=== PATIENT | male | born 1965 | race Caucasian/White ===

== ENCOUNTER 2016-04-13 10:32 | Emergency (ER) | payer MEDICAID, OTHER ==
[~2016-04-13] VITALS: Ht 188 cm; Wt 138.8 kg
[~2016-04-13 10:32] MED LIST: ALPR1TAB7 PO; ASPI-231 PO; ATOR40TA52 PO; CITA-73 PO; DIAZ-104 PO; DOCU-94 PO; FENO5TAB PO; FLUT50SP13; GABA300C PO; INSUPOW SC; MECL25CH20 PO; MECL25TA94 PO; METH-562 PO; METH500T6 PO; NITR0.4S31 SL; NOVOLOG SC; OMEP20TA44 PO; PHENERGAN PO; PROMETHAZINE PO; RANI150C11 PO; [UNRECOGNIZED DRUG - CODE]; regular insulin
[2016-04-13 11:00] VITALS: BP 165/84
== END 2016-04-13 11:17 | disposition home or self-care (01) ==
LOC: ER 10:44
DX: S16.1XXA Strain of muscle, fascia and tendon at neck level, initial encounter (principal); E11.22 Type 2 diabetes mellitus with diabetic chronic kidney disease; I12.9 Hypertensive chronic kidney disease with stage 1 through stage 4 chronic kidney disease, or unspecified chronic kidney disease; N18.9 Chronic kidney disease, unspecified; J44.9 Chronic obstructive pulmonary disease, unspecified; E78.5 Hyperlipidemia, unspecified; I25.2 Old myocardial infarction; Z79.82 Long term (current) use of aspirin; Z79.4 Long term (current) use of insulin; Z79.899 Other long term (current) drug therapy; V49.9XXA Car occupant (driver) (passenger) injured in unspecified traffic accident, initial encounter; Y93.89 Activity, other specified; Y99.8 Other external cause status; Y92.89 Other specified places as the place of occurrence of the external cause

== ENCOUNTER 2016-11-18 14:51 | Emergency (ER) | payer OTHER, MEDICAID ==
[~2016-11-18] VITALS: Ht 188 cm; Wt 128.4 kg
[2016-11-18 15:42] VITALS: BP 143/93
== END 2016-11-18 16:52 | disposition home or self-care (01) ==
LOC: ER 14:51
DX: S63.602A Unspecified sprain of left thumb, initial encounter (principal); E78.5 Hyperlipidemia, unspecified; W18.39XA Other fall on same level, initial encounter; I12.9 Hypertensive chronic kidney disease with stage 1 through stage 4 chronic kidney disease, or unspecified chronic kidney disease; I25.2 Old myocardial infarction; F17.210 Nicotine dependence, cigarettes, uncomplicated; N18.9 Chronic kidney disease, unspecified; E11.22 Type 2 diabetes mellitus with diabetic chronic kidney disease; J44.9 Chronic obstructive pulmonary disease, unspecified; Z88.1 Allergy status to other antibiotic agents; Z88.8 Allergy status to other drugs, medicaments and biological substances; Z79.899 Other long term (current) drug therapy; Z90.49 Acquired absence of other specified parts of digestive tract; H81.09 Meniere's disease, unspecified ear; Y93.89 Activity, other specified; Y92.89 Other specified places as the place of occurrence of the external cause; Y99.8 Other external cause status
CPT/HCPCS: 73130

== ENCOUNTER 2017-01-08 09:59 | Inpatient (IN) | payer OTHER, MEDICAID ==
[~2017-01-08] VITALS: Ht 188 cm; Wt 137.0 kg
[2017-01-08] MEDS ORDERED: SODIUM CHLORIDE 0.9% 1,000 ML IV ONE (10:54)
[2017-01-08] MEDS ORDERED: cefTRIAXone 1GM/50ML D5W 50 ML IV ONE (11:00)
[2017-01-08] MEDS ORDERED: NITROGLYCERIN 0.4 MG SL TAB SL PRN (13:15)
[2017-01-08] MEDS ORDERED: HYDROmorphone HCL 2 MG/ML VL IV PRN (13:15)
[2017-01-08] MEDS ORDERED: DEXTROSE (50%) 50ML SYRG IV PRN (13:15)
[2017-01-08] MEDS ORDERED: LACTULOSE 20Gm/30ML SOLN PO PRN (13:15)
[2017-01-08] MEDS ORDERED: HYDROcodone-ACET 5/325MG TAB PO PRN (13:15)
[2017-01-08] MEDS ORDERED: ACETAMINOPHEN 500 MG TAB PO PRN (13:15)
[2017-01-08] MEDS ORDERED: MORPHINE SULFATE 10 MG/ML INJ 1ML SDV IV PRN (13:15)
[2017-01-08] MEDS ORDERED: ALPRAZolam 0.5 MG TAB PO PRN (13:45)
[2017-01-08] MEDS: GABAPENTIN 300 MG CAP PO SCH ×2 (13:47→21:54)
[2017-01-08] MEDS ORDERED: CLINDAMYCIN 600MG IV 50 ML IV SCH (14:00)
[2017-01-08] MEDS ORDERED: VANCOMYCIN 1GM/250ML 250 ML IV ONE (14:15)
[2017-01-08] MEDS ORDERED: VANCOMYCIN PER PHARMACY 0 MG IV SCH (14:15)
[2017-01-08] MEDS: SODIUM CHLORIDE 0.9% 1,000 ML IV SCH ×2 (14:24→23:02)
[2017-01-08 15:20] LABS: Basophils # (auto) 0 uL; Basophils % (auto) 0.2 % (0.0-2.0); Eosinophils # (auto) 0.1 uL; Eosinophils % (auto) 0.8 % (0.0-7.0); Hematocrit 40.4 % (41.0-53.0); Hemoglobin 13.6 g/dL (13.5-17.5); Lymphocytes # (auto) 1.1 uL; Lymphocytes % (auto) 9.8 % (10.0-50.0); Mean Corpuscular Hemoglobin 30.1 pg (28.0-32.0); Mean Corpuscular Hgb Conc. 33.8 g/dL (32.0-36.0); Mean Corpuscular Volume 88.9 fL (80.0-100.0); Mean Platelet Volume 7.9 fL (6.9-10.8); Monocytes # (auto) 0.5 uL; Monocytes % (auto) 4.8 % (0.0-12.0); Neutrophils # (auto) 9.1 uL; Neutrophils % (auto) 84.4 % (37.0-80.0); Platelet Count (auto) 94 10^3/uL (140-450); Red Cell Distribution Width 13.5 % (11.8-14.3); White Blood Cell 10.8 10^3/uL (4.4-10.8)
[2017-01-08 15:26] LABS: Albumin 2.6 g/dL (3.4-5.0); Anion Gap 8 (5-15); Aspartate Aminotransferase 14 U/L (15-37); BUN/Creatinine Ratio 17.9; Blood Urea Nitrogen 27 mg/dL (7-18); Calcium 8.1 mg/dL (8.5-10.1); Carbon Dioxide 24 mmol/L (21-32); Chloride 102 mmol/L (98-107); GFR African American 63 mL/min; GFR Non-African American 52 mL/min; Glucose 273 mg/dL (74-106); Potassium 3.6 mmol/L (3.5-5.1); Sodium 134 mmol/L (136-145)
[2017-01-08 15:31] LABS: Alkaline Phosphatase 68 U/L (45-117); Bilirubin, Total 0.6 mg/dL (0.2-1.0); Total Protein 6.4 g/dL (6.4-8.2)
[2017-01-08 16:47] LABS: Anisocytosis Slight; Platelet Estimate Decreased
[2017-01-08] MEDS: ACCU-CHEK COMFORT CURVE STRIP VI SCH ×2 (16:51→21:54)
[2017-01-08] MEDS: CITALOPRAM HYDROBR 20 MG TAB PO SCH (16:52)
[2017-01-08] MEDS: InsuLIN REG 1unit/0.01ml Soln (100units/ml) SC SCH ×2 (16:52→21:55)
[2017-01-08] MEDS: DIAZEPAM 5 MG TAB PO SCH ×2 (18:13→21:54)
[2017-01-08] MEDS: HYDROmorphone HCL 2 MG/ML VL IV PRN (18:40)
[2017-01-08 20:45] VITALS: BP 138/75
[2017-01-08] MEDS: ATORVASTATIN 20 MG TAB PO SCH (21:54)
[2017-01-08] MEDS: DOCUSATE SOD 100 MG CAP PO SCH (21:56)
[2017-01-08 22:00] VITALS: BP 138/75
[2017-01-08] MEDS: TEMAZEPAM 15 MG CAP PO PRN (22:00)
[2017-01-08 22:14] VITALS: BP 113/68
[2017-01-08] MEDS: VANCOMYCIN 1,250 MG in D5W 5% 250 ML IV SCH (23:53)
[2017-01-09] VITALS (7 sets, daily range): BP systolic 105–138; BP diastolic 60–81
[2017-01-09] MEDS: HYDROmorphone HCL 2 MG/ML VL IV PRN ×3 (02:32→20:17)
[2017-01-09 03:43] LABS: Urine Bilirubin Negative (Negative); Urine Blood Negative /uL (Negative); Urine Color Yellow (Yellow); Urine Glucose 3+ mg/dL (Normal); Urine Ketone Negative (Negative); Urine Nitrite Negative (Negative); Urine RBC 1 /hpf (0 - 3); Urine Squamous Epithelial Cell FEW /hpf (<5)
[2017-01-09] MEDS ORDERED: HYDR50TA69 PO (04:42)
[2017-01-09] MEDS ORDERED: AMLO5TAB2 PO (04:42)
[2017-01-09] MEDS ORDERED: CELE200C PO ×2 (05:12)
[2017-01-09] MEDS ORDERED: CETI10TA93 PO (05:12)
[2017-01-09] MEDS ORDERED: TADA5TAB11 PO (05:12)
[2017-01-09] MEDS ORDERED: GEMF600T3 PO (05:12)
[2017-01-09] MEDS ORDERED: PERCOT PO ×2 (05:12)
[2017-01-09] MEDS ORDERED: CHOL20007 PO (05:12)
[2017-01-09] MEDS ORDERED: TOPI100T68 PO (05:12)
[2017-01-09] MEDS ORDERED: MULTTAB61 PO (05:12)
[2017-01-09] MEDS ORDERED: ARIP1TAB7 PO (05:12)
[2017-01-09] MEDS ORDERED: MIRT30TA PO (05:12)
[2017-01-09] MEDS ORDERED: PAR20T PO (05:12)
[2017-01-09] MEDS ORDERED: TIZA4TAB9 PO (05:12)
[2017-01-09] MEDS ORDERED: MORP30TA PO (05:12)
[2017-01-09] MEDS ORDERED: TEST1.62 TD (05:18)
[2017-01-09] MEDS ORDERED: INSUINJ3 SC (05:19)
[2017-01-09] MEDS: ACCU-CHEK COMFORT CURVE STRIP VI SCH ×4 (06:26→22:07)
[2017-01-09] MEDS: DIAZEPAM 5 MG TAB PO SCH ×4 (06:26→22:07)
[2017-01-09] MEDS: GABAPENTIN 300 MG CAP PO SCH ×3 (06:26→22:07)
[2017-01-09] MEDS: InsuLIN REG 1unit/0.01ml Soln (100units/ml) SC SCH ×4 (06:27→22:00)
[2017-01-09] MEDS: cefTRIAXone 1GM/50ML D5W 50 ML IV SCH (08:46)
[2017-01-09] MEDS: DOCUSATE SOD 100 MG CAP PO SCH ×2 (08:47→22:06)
[2017-01-09] MEDS: ENOXAPARIN SOD 40 MG/0.4 ML SYRINGE SC SCH (08:47)
[2017-01-09] MEDS: ASPirin-EC 81 mg tab PO SCH (08:47)
[2017-01-09] MEDS: CITALOPRAM HYDROBR 20 MG TAB PO SCH (08:47)
[2017-01-09] MEDS: PANTOPRAZOLE 40 MG TAB PO SCH (08:47)
[2017-01-09] MEDS: SODIUM CHLORIDE 0.9% 1,000 ML IV SCH ×2 (08:48→19:02)
[2017-01-09] MEDS ORDERED: ASPirin-EC 81 mg tab PO SCH (10:00)
[2017-01-09] MEDS: VANCOMYCIN 1,250 MG in D5W 5% 250 ML IV SCH (12:02)
[2017-01-09] MEDS ORDERED: MULTIPLE VITAMINS W/ MINERALS TAB PO ONE (13:45)
[2017-01-09] MEDS ORDERED: ASCORBIC ACID 500 MG TAB PO ONE (13:45)
[2017-01-09] MEDS: ATORVASTATIN 20 MG TAB PO SCH (22:06)
[2017-01-09] MEDS: ASCORBIC ACID 500 MG TAB PO SCH (22:07)
[2017-01-09] MEDS: TEMAZEPAM 15 MG CAP PO PRN (22:08)
[2017-01-09] MEDS ORDERED: LORazepam 2MG/ML-1ML VIAL IV PRN (23:15)
[2017-01-10] MEDS: VANCOMYCIN 1,250 MG in SODIUM CHL 0.9% 250 ML IV SCH ×2 (00:06→11:48)
[2017-01-10 05:00] VITALS: BP 123/73
[2017-01-10] MEDS: SODIUM CHLORIDE 0.9% 1,000 ML IV SCH ×3 (05:30→20:00)
[2017-01-10] MEDS: DIAZEPAM 5 MG TAB PO SCH ×4 (06:04→21:53)
[2017-01-10] MEDS: GABAPENTIN 300 MG CAP PO SCH ×3 (06:05→21:52)
[2017-01-10 06:38] LABS: Basophils # (auto) 0 uL; Basophils % (auto) 0.3 % (0.0-2.0); Eosinophils # (auto) 0.1 uL; Eosinophils % (auto) 1.2 % (0.0-7.0); Hematocrit 35.3 % (41.0-53.0); Hemoglobin 12.2 g/dL (13.5-17.5); Lymphocytes # (auto) 1.2 uL; Lymphocytes % (auto) 18.6 % (10.0-50.0); Mean Corpuscular Hemoglobin 29.8 pg (28.0-32.0); Mean Corpuscular Hgb Conc. 34.7 g/dL (32.0-36.0); Mean Platelet Volume 8.1 fL (6.9-10.8); Monocytes # (auto) 0.5 uL; Monocytes % (auto) 8.5 % (0.0-12.0); Neutrophils # (auto) 4.6 uL; Neutrophils % (auto) 71.4 % (37.0-80.0); Nucleated Red Blood Cells % 0.1 %; Platelet Count (auto) 114 10^3/uL (140-450); Red Cell Distribution Width 13.2 % (11.8-14.3); White Blood Cell 6.4 10^3/uL (4.4-10.8)
[2017-01-10 06:52] LABS: Potassium 3.6 mmol/L (3.5-5.1)
[2017-01-10] MEDS: InsuLIN REG 1unit/0.01ml Soln (100units/ml) SC SCH ×4 (06:52→22:00)
[2017-01-10] MEDS: ACCU-CHEK COMFORT CURVE STRIP VI SCH ×4 (06:52→21:53)
[2017-01-10 06:57] LABS: BUN/Creatinine Ratio 14.6; Calcium 8.3 mg/dL (8.5-10.1); Magnesium 2.2 mg/dL (1.6-2.6)
[2017-01-10 08:00] VITALS: BP 141/78
[2017-01-10 09:00] VITALS: BP 141/78
[2017-01-10] MEDS: DOCUSATE SOD 100 MG CAP PO SCH ×2 (09:59→21:52)
[2017-01-10] MEDS: ASPirin-EC 81 mg tab PO SCH (09:59)
[2017-01-10] MEDS: ENOXAPARIN SOD 40 MG/0.4 ML SYRINGE SC SCH (09:59)
[2017-01-10] MEDS: PANTOPRAZOLE 40 MG TAB PO SCH (09:59)
[2017-01-10] MEDS: ASCORBIC ACID 500 MG TAB PO SCH ×2 (09:59→21:53)
[2017-01-10] MEDS: cefTRIAXone 1GM/50ML D5W 50 ML IV SCH (09:59)
[2017-01-10] MEDS: CITALOPRAM HYDROBR 20 MG TAB PO SCH (09:59)
[2017-01-10] MEDS: MULTIPLE VITAMINS W/ MINERALS TAB PO SCH (10:00)
[2017-01-10 13:00] VITALS: BP 125/72
[2017-01-10 17:00] VITALS: BP 134/67
[2017-01-10] MEDS: GEMFIBROZIL 600 MG TAB PO SCH (17:07)
[2017-01-10] MEDS: PROMETHAZINE HCL 25 MG/ML 1ML IV PRN (18:48)
[2017-01-10] MEDS: HYDROmorphone HCL 2 MG/ML VL IV PRN (18:48)
[2017-01-10] MEDS: ATORVASTATIN 20 MG TAB PO SCH (21:52)
[2017-01-10] MEDS: TEMAZEPAM 15 MG CAP PO PRN (21:53)
[2017-01-10 23:00] VITALS: BP 94/51
[2017-01-11] VITALS (10 sets, daily range): BP systolic 111–130; BP diastolic 61–87
[2017-01-11] MEDS: VANCOMYCIN 1,250 MG in SODIUM CHL 0.9% 250 ML IV SCH ×3 (00:05→23:59)
[2017-01-11] MEDS: PROMETHAZINE HCL 25 MG/ML 1ML IV PRN ×4 (01:19→21:32)
[2017-01-11] MEDS: HYDROmorphone HCL 2 MG/ML VL IV PRN ×4 (01:19→21:32)
[2017-01-11] MEDS: GABAPENTIN 300 MG CAP PO SCH ×3 (06:17→21:26)
[2017-01-11] MEDS: DIAZEPAM 5 MG TAB PO SCH ×4 (06:17→21:32)
[2017-01-11] MEDS: ACCU-CHEK COMFORT CURVE STRIP VI SCH ×4 (06:18→21:32)
[2017-01-11] MEDS: GEMFIBROZIL 600 MG TAB PO SCH ×2 (06:18→18:25)
[2017-01-11] MEDS: InsuLIN REG 1unit/0.01ml Soln (100units/ml) SC SCH ×4 (06:18→21:34)
[2017-01-11] MEDS: cefTRIAXone 1GM/50ML D5W 50 ML IV SCH (10:28)
[2017-01-11] MEDS: CITALOPRAM HYDROBR 20 MG TAB PO SCH (10:28)
[2017-01-11] MEDS: ASPirin-EC 81 mg tab PO SCH (10:28)
[2017-01-11] MEDS: DOCUSATE SOD 100 MG CAP PO SCH ×2 (10:28→21:26)
[2017-01-11] MEDS: SODIUM CHLORIDE 0.9% 1,000 ML IV SCH ×2 (10:29→22:00)
[2017-01-11] MEDS: ASCORBIC ACID 500 MG TAB PO SCH ×2 (10:29→21:32)
[2017-01-11] MEDS: ENOXAPARIN SOD 40 MG/0.4 ML SYRINGE SC SCH (10:29)
[2017-01-11] MEDS: MULTIPLE VITAMINS W/ MINERALS TAB PO SCH (10:29)
[2017-01-11] MEDS: PANTOPRAZOLE 40 MG TAB PO SCH (10:29)
[2017-01-11] MEDS: ATORVASTATIN 20 MG TAB PO SCH (21:25)
[2017-01-12] MEDS: TEMAZEPAM 15 MG CAP PO PRN (00:14)
[2017-01-12] MEDS: PROMETHAZINE HCL 25 MG/ML 1ML IV PRN ×3 (02:23→10:34)
[2017-01-12] MEDS: HYDROmorphone HCL 2 MG/ML VL IV PRN ×3 (02:23→10:34)
[2017-01-12 05:00] VITALS: BP 120/68
[2017-01-12] MEDS: DIAZEPAM 5 MG TAB PO SCH ×2 (06:09→11:41)
[2017-01-12] MEDS: GABAPENTIN 300 MG CAP PO SCH ×2 (06:09→14:00)
[2017-01-12] MEDS: GEMFIBROZIL 600 MG TAB PO SCH (06:09)
[2017-01-12] MEDS: ACCU-CHEK COMFORT CURVE STRIP VI SCH ×2 (06:16→11:39)
[2017-01-12] MEDS: InsuLIN REG 1unit/0.01ml Soln (100units/ml) SC SCH ×2 (06:16→11:30)
[2017-01-12 07:02] LABS: Hematocrit 38.1 % (41.0-53.0); Mean Corpuscular Hemoglobin 29.4 pg (28.0-32.0); Mean Corpuscular Hgb Conc. 34.1 g/dL (32.0-36.0); Mean Corpuscular Volume 86.1 fL (80.0-100.0); Mean Platelet Volume 7.8 fL (6.9-10.8); Platelet Count (auto) 157 10^3/uL (140-450); Red Cell Distribution Width 13.5 % (11.8-14.3); White Blood Cell 7.3 10^3/uL (4.4-10.8)
[2017-01-12] MEDS: SODIUM CHLORIDE 0.9% 1,000 ML IV SCH (07:02)
[2017-01-12 07:07] LABS: BUN/Creatinine Ratio 11.5; Calcium 8.4 mg/dL (8.5-10.1); Phosphorus 3.7 mg/dL (2.5-4.90); Potassium 3.5 mmol/L (3.5-5.1)
[2017-01-12 07:35] LABS: Metamyelocytes % 0; Myelocytes % 0; Promyelocytes % 0; Reactive Lymphocytes 0
[2017-01-12 08:00] VITALS: BP 133/82
[2017-01-12 08:29] LABS: Platelet Clumps FEW; Platelet Estimate Adequate
[2017-01-12 09:00] VITALS: BP 133/82
[2017-01-12] MEDS: CITALOPRAM HYDROBR 20 MG TAB PO SCH (10:32)
[2017-01-12] MEDS: MULTIPLE VITAMINS W/ MINERALS TAB PO SCH (10:32)
[2017-01-12] MEDS: cefTRIAXone 1GM/50ML D5W 50 ML IV SCH (10:32)
[2017-01-12] MEDS: PANTOPRAZOLE 40 MG TAB PO SCH (10:33)
[2017-01-12] MEDS: DOCUSATE SOD 100 MG CAP PO SCH (10:33)
[2017-01-12] MEDS: ASCORBIC ACID 500 MG TAB PO SCH (10:33)
[2017-01-12] MEDS: ASPirin-EC 81 mg tab PO SCH (10:33)
[2017-01-12] MEDS: ENOXAPARIN SOD 40 MG/0.4 ML SYRINGE SC SCH (10:34)
[2017-01-12] MEDS: VANCOMYCIN 1,250 MG in SODIUM CHL 0.9% 250 ML IV SCH (11:41)
[2017-01-12 13:00] VITALS: BP 120/75
[2017-01-12 13:23] VITALS: BP 120/75
[2017-01-12 15:10] VITALS: BP 120/75
== END 2017-01-12 15:10 | disposition home or self-care (01) | DRG 602 ==
LOC: EDBD 09:59 → ER 09:59 → TELE 10:00 → TELE-CENTR 20:25
PROVIDERS: ADMIT Internal Medicine; ATTEND Internal Medicine
PROC: 5A09457 Assistance with Respiratory Ventilation, 24-96 Consecutive Hours, Continuous Positive Airway Pressure (ICD-10-PCS; principal; 2017-01-08)
DX: L03.115 Cellulitis of right lower limb (principal); G93.41 Metabolic encephalopathy; N17.9 Acute kidney failure, unspecified; E11.22 Type 2 diabetes mellitus with diabetic chronic kidney disease; E66.2 Morbid (severe) obesity with alveolar hypoventilation; E11.42 Type 2 diabetes mellitus with diabetic polyneuropathy; E78.5 Hyperlipidemia, unspecified; F41.9 Anxiety disorder, unspecified; G89.4 Chronic pain syndrome; I12.9 Hypertensive chronic kidney disease with stage 1 through stage 4 chronic kidney disease, or unspecified chronic kidney disease; I25.10 Atherosclerotic heart disease of native coronary artery without angina pectoris; R20.2 Paresthesia of skin; G47.00 Insomnia, unspecified; K59.00 Constipation, unspecified; F32.9 Major depressive disorder, single episode, unspecified; B95.61 Methicillin susceptible Staphylococcus aureus infection as the cause of diseases classified elsewhere; J44.9 Chronic obstructive pulmonary disease, unspecified; N18.9 Chronic kidney disease, unspecified; N40.0 Benign prostatic hyperplasia without lower urinary tract symptoms; Z79.4 Long term (current) use of insulin; Z81.8 Family history of other mental and behavioral disorders; Z82.0 Family history of epilepsy and other diseases of the nervous system; Z82.3 Family history of stroke; Z82.49 Family history of ischemic heart disease and other diseases of the circulatory system; Z82.5 Family history of asthma and other chronic lower respiratory diseases; Z83.3 Family history of diabetes mellitus; Z86.718 Personal history of other venous thrombosis and embolism; Z68.38 Body mass index [BMI] 38.0-38.9, adult; Z71.3 Dietary counseling and surveillance; Z71.89 Other specified counseling; Z90.49 Acquired absence of other specified parts of digestive tract; Z90.89 Acquired absence of other organs; Z88.1 Allergy status to other antibiotic agents; I25.2 Old myocardial infarction; Z88.8 Allergy status to other drugs, medicaments and biological substances; Z79.899 Other long term (current) drug therapy
CPT/HCPCS: 36415; 70450; 73590; 80048; 80053; 80202; 81001; 82565; 82607; 82962; 83036; 83735; 84100; 84443; 84484; 85007; 85025; 85027; 85379; 85652; 87040; 87077; 87081; 87186; 87205; 93005; 93306; 93886; 93971; 94660; 94761; 95819; 96365; 96375; J0696; J3490; J7060